=== PATIENT | female | born 1990 ===

== ENCOUNTER 2021-09-08 15:11 | Emergency (ER) | payer OTHER ==
[~2021-09-08] VITALS: Ht 154.9 cm; Wt 48.1 kg
[2021-09-08] MEDS ORDERED: KETOROLAC TROMETHAMINE 15 MG INJ IVP ONE ×2 (15:30→16:45)
[2021-09-08] MEDS ORDERED: KETOROLAC TROMETHAMINE 15 MG INJ ONE ×2 (15:37→16:42)
[2021-09-08 15:50] LABS: HEMATOCRIT 38.2 % (31.2-41.9); MEAN CORPUSCULAR HEMOGLOBIN 30.5 uug (24.7-32.8); MEAN CORPUSCULAR VOLUME 87.6 fL (75.5-95.3); PLATELET COUNT (AUTO) 178 K/uL (179-408)
--- NOTE | 2021-09-08 15:57 | NUR ---
30 y/o female has left flank pain which radiates to abd, pain started while she was sitting at work and was sudden onset
[2021-09-08 15:58] LABS: ALANINE AMINOTRANSFERASE 30 U/L (14-59); ALKALINE PHOSPHATASE 97 U/L (50-136); ASPARTATE AMINOTRANSFERASE 15 U/L (15-37); BILIRUBIN,DIRECT < 0.1 mg/dL (0.0-0.2); BILIRUBIN,TOTAL 0.2 mg/dL (0.2-1.0); CARBON DIOXIDE 30 mmol/L (21-32); CHLORIDE 101 mmol/L (98-107); CREATININE 0.7 mg/dL (0.6-1.3); GLUCOSE 104 mg/dL (74-106); LIPASE 91 U/L (73-393); POTASSIUM 3.9 mmol/L (3.5-5.1); TOTAL PROTEIN, SERUM 7.3 g/dL (6.4-8.2); UREA NITROGEN, BLOOD 13 mg/dL (7-18)
[2021-09-08 16:21] LABS: *BILIRUBIN,URIN NEGATIVE (NEGATIVE); *BLOOD, URINE NEGATIVE (NEGATIVE); *COLOR,URINE YELLOW (YELLOW); *KETONES,URINE NEGATIVE (NEGATIVE); *UROBILINOGEN,URINE 0.2 E.U./dl (NORMAL); LEUKOCYTE ESTERASE ,URINE NEGATIVE (NEGATIVE); NITRITE, URINE NEGATIVE (NEGATIVE); UGLUCOSE NEGATIVE (NEGATIVE)
[2021-09-08 16:28] LABS: *CLARITY,URINE EH966186 (CLEAR); *URINE HCG, QUAL NEGATIVE (NEGATIVE)
[2021-09-08] MEDS ORDERED: IOHEXOL 350 100 ML INFUS..BTL ONE (17:58)
[2021-09-08 18:41] LABS: BAND % (MANUAL) 2 % (0-10); EOSINOPHILS % (MANUAL) 2 % (0-8); LYMPHOCYTES % (MANUAL) 40 % (20-40); MONOCYTES % (MANUAL) 12 % (2-10); NEUTROPHILS % (MANUAL) 44 % (42-75)
--- NOTE | 2021-09-08 20:20 | NUR ---
IV removed. Catheter intact and site benign. Pressure and 4x4 gauze applied to site. No bleeding noted.
[2021-09-08] MEDS ORDERED: NAPR-1164 PO (20:28)
[2021-09-08] MEDS ORDERED: CYCL10TA9 PO (20:28)
[2021-09-08 20:53] VITALS: BP 108/72
--- NOTE | 2021-09-08 20:53 | NUR ---
Patient discharged to home in stable condition. Written and verbal after care instructions given. Patient verbalizes understanding of instructions. Stressed follow up or return to ER for worsening s/s.
== END 2021-09-08 20:54 | disposition home or self-care (01) ==
LOC: ER 15:16
DX: R10.12 Left upper quadrant pain (principal); R07.81 Pleurodynia; Z88.2 Allergy status to sulfonamides
CPT/HCPCS: 36415; 71275; 74176; 80048; 80076; 81003; 83690; 84703; 85007; 85025; 85379; 87086; 96374; 96376; 99285; J1885 ×2; Q9967; 70030-TC; A4663